=== PATIENT | female | born 1995 | race Two or more races ===

== ENCOUNTER 2017-11-18 19:16 | Emergency (ER) | payer OTHER ==
[~2017-11-18] VITALS: Ht 170.2 cm; Wt 51.3 kg
[~2017-11-18 19:16] MED LIST: NO MEDICAMENTO; PROTONIX40 MG PO
== END 2017-11-18 22:24 | disposition home or self-care (01) ==
LOC: ER 19:16
DX: B34.9 Viral infection, unspecified (principal)

== ENCOUNTER 2017-11-29 20:13 | Emergency (ER) | payer OTHER ==
[~2017-11-29] VITALS: Ht 170.2 cm; Wt 51.3 kg
[2017-11-30] MEDS ORDERED: PEPCID40 MG PO (02:27)
[2017-11-30] MEDS ORDERED: ZOFRAN4 MG PO (02:27)
== END 2017-11-30 02:26 | disposition home or self-care (01) ==
LOC: ER 20:13
DX: K29.70 Gastritis, unspecified, without bleeding (principal)

== ENCOUNTER → 2018-09-20 | Emergency (ER) | payer OTHER ==
[~2018-09-20] VITALS: Ht 175.3 cm; Wt 56.2 kg
[~2018-09-20] MED LIST changes: +FOLIC ACID0.4 MG; +MEDROLPACK PO; +PEPCID40 MG PO; +PRENA1 CHEW TA1.4 MG; +SINGULAIR 10MG10 MG PO; +ZOFRAN4 MG PO
== END | disposition home or self-care (01) ==
LOC: ER 17:25
DX: O26.891 Other specified pregnancy related conditions, first trimester (principal); R10.2 Pelvic and perineal pain; Z34.01 Encounter for supervision of normal first pregnancy, first trimester

== ENCOUNTER 2018-09-29 01:41 | Emergency (ER) | payer OTHER ==
[~2018-09-29] VITALS: Ht 175.3 cm; Wt 56.2 kg
== END 2018-09-29 08:51 | disposition home or self-care (01) ==
LOC: ER 01:41
DX: O20.0 Threatened abortion (principal)

== ENCOUNTER 2018-10-23 13:32 | Emergency (ER) | payer OTHER ==
[~2018-10-23] VITALS: Ht 170.2 cm; Wt 68.0 kg
== END 2018-10-23 22:07 | disposition home or self-care (01) ==
LOC: ER 13:32
DX: O23.32 Infections of other parts of urinary tract in pregnancy, second trimester (principal); O26.892 Other specified pregnancy related conditions, second trimester; R10.2 Pelvic and perineal pain; Z34.02 Encounter for supervision of normal first pregnancy, second trimester

== ENCOUNTER 2018-11-27 15:46 | Emergency (ER) | payer OTHER ==
[~2018-11-27] VITALS: Ht 175.3 cm; Wt 58.1 kg
== END 2018-11-27 18:53 | disposition home or self-care (01) ==
LOC: ER 15:46
DX: R04.0 Epistaxis (principal); J32.8 Other chronic sinusitis; Z33.1 Pregnant state, incidental

== ENCOUNTER 2018-12-20 18:15 | Inpatient (IN) | payer OTHER ==
[~2018-12-20] VITALS: Ht 175.3 cm; Wt 59.0 kg
[2018-12-23] MEDS ORDERED: IRON325 MG PO (13:24)
[2018-12-23] MEDS ORDERED: CALCIUM 600 +1 EAC7 PO (13:24)
[2018-12-23] MEDS ORDERED: FOLIC ACID1 MG PO (13:24)
[2018-12-23] MEDS ORDERED: OBSTETRIX EC C1 EACH PO (13:24)
== END 2018-12-23 14:26 | disposition home or self-care (01) | DRG 833 ==
LOC: LDR 18:15 → OB/GYN 12-22 08:46
PROVIDERS: ADMIT Specialist
PROC: BY4CZZZ Ultrasonography of Second Trimester, Single Fetus (ICD-10-PCS; principal; 2018-12-20)
PROC: 4A1HXCZ Monitoring of Products of Conception, Cardiac Rate, External Approach (ICD-10-PCS; 2018-12-20)
DX: O47.02 False labor before 37 completed weeks of gestation, second trimester (principal); K29.00 Acute gastritis without bleeding; E86.0 Dehydration; E87.8 Other disorders of electrolyte and fluid balance, not elsewhere classified; Z34.02 Encounter for supervision of normal first pregnancy, second trimester

== ENCOUNTER 2019-01-03 15:41 | Outpatient (CLI) | payer OTHER ==
[~2019-01-03 15:41] MED LIST changes: +CALCIUM 600 +1 EAC7 PO; +FOLIC ACID1 MG PO; +IRON325 MG PO; +OBSTETRIX EC C1 EACH PO
[2019-01-04] MEDS ORDERED: NIFEDIPINE ER30 MG PO (10:12)
== END 2019-01-04 10:43 | disposition home or self-care (01) ==
LOC: OBS/DEL 15:41
DX: O60.03 Preterm labor without delivery, third trimester (principal); Z34.83 Encounter for supervision of other normal pregnancy, third trimester

== ENCOUNTER 2019-02-09 06:46 | Outpatient (CLI) | payer OTHER ==
[~2019-02-09 06:46] MED LIST changes: +NIFEDIPINE ER30 MG PO
== END 2019-02-09 10:02 | disposition home or self-care (01) ==
LOC: OBS/DEL 06:46
DX: O26.893 Other specified pregnancy related conditions, third trimester (principal); R10.2 Pelvic and perineal pain; Z34.83 Encounter for supervision of other normal pregnancy, third trimester

== ENCOUNTER 2019-03-04 09:18 | Inpatient (IN) | payer OTHER ==
[~2019-03-04] VITALS: Ht 175.3 cm; Wt 66.7 kg
[2019-03-15] MEDS ORDERED: Dermoplast SPRAY TOP (11:08)
[2019-03-15] MEDS ORDERED: HYDROCORTISO453.6 G1 RECTAL (11:08)
[2019-03-15] MEDS ORDERED: PRENA1 CHEW TA1.4 MG PO (11:08)
[2019-03-15] MEDS ORDERED: OXYC1TAB9 PO (11:08)
== END 2019-03-15 16:17 | disposition home or self-care (01) | DRG 807 ==
LOC: LDR 03-11 14:00 → OB/GYN 03-13 03:56
PROVIDERS: ADMIT Specialist
PROC: 10E0XZZ Delivery of Products of Conception, External Approach (ICD-10-PCS; principal; 2019-03-13)
PROC: 4A0HXFZ Measurement of Products of Conception, Cardiac Rhythm, External Approach (ICD-10-PCS; 2019-03-13)
DX: O80 Encounter for full-term uncomplicated delivery (principal); Z37.0 Single live birth; Z3A.38 38 weeks gestation of pregnancy

== ENCOUNTER 2019-04-30 01:04 | Inpatient (IN) | payer OTHER ==
[~2019-04-30] VITALS: Ht 175.3 cm; Wt 59.0 kg
[~2019-04-30 01:04] MED LIST changes: +Dermoplast SPRAY TOP; +HYDROCORTISO453.6 G1 RECTAL; +OXYC1TAB9 PO; +PRENA1 CHEW TA1.4 MG PO
== END 2019-05-02 20:02 | disposition home or self-care (01) | DRG 446 ==
LOC: ER 01:04 → EMR PED 01:05 → ER 01:05 → OB/GYN 19:43
PROVIDERS: ADMIT Internal Medicine
PROC: BF37ZZZ Magnetic Resonance Imaging (MRI) of Pancreas (ICD-10-PCS; principal; 2019-04-30)
PROC: BW40ZZZ Ultrasonography of Abdomen (ICD-10-PCS; 2019-04-30)
DX: K80.20 Calculus of gallbladder without cholecystitis without obstruction (principal); R59.1 Generalized enlarged lymph nodes; J45.909 Unspecified asthma, uncomplicated; R74.8 Abnormal levels of other serum enzymes

== ENCOUNTER 2019-05-12 18:26 | Inpatient (IN) | payer OTHER ==
[~2019-05-12] VITALS: Ht 172.7 cm; Wt 59.0 kg
--- NOTE | 2019-05-12 18:36 | NUR ---
PACIENTE ALERTA,ACTIVA Y ORIENTADA,REFIERE KATERIN HORA CON DOLOR SBDOMINAL QUE REFIERE ES POR PIEDRAS EN LA VESICULA.REFIERE VOMITO X 1.
--- NOTE | 2019-05-12 19:53 | NUR ---
SE ORIENTA A PTE SOBRE PROCESO DE VENOPUNCION, TIO DE MUESTRAS, ADMINISTRACION DE MED IV & SUBLINGUAL. PTE REFIERE ENTENDER INF CIARA, PTE ESPERA POR ESTUDIO.
--- NOTE | 2019-05-13 08:00 | NUR ---
SE RECIBE PTE DEL TURNO ANTERIOR, ALERTA Y ORIENTADA X 3 ESFERAS, EN CAMA NIVEL MAS BAJO, DAUGHERTY DE IDENTIFICACION Y BARANDAS ELEVADAS POR PRECAUCION. SE OBSERVA CON BUEN PATRON RESPIRATORIO Y PIEL TIBIA AL TACTO. H.L PATENTE Y MATHEW DE EDEMA O ERITEMA. PENDIENTE A CONSULTA CON DR TRIMBLE Y DR MALAVE.
== END 2019-05-16 10:40 | DRG 419 ==
LOC: ER 18:26 → MEDI 05-13 13:31 → SEC-K 05-13 13:31 → MEDJ 05-13 16:19 → MEDI 05-13 16:19 → OB/GYN 05-14 19:29
PROVIDERS: ADMIT Surgery
PROC: 0DNW4ZZ Release Peritoneum, Percutaneous Endoscopic Approach (ICD-10-PCS; 2019-05-14)
PROC: 0FT44ZZ Resection of Gallbladder, Percutaneous Endoscopic Approach (ICD-10-PCS; principal; 2019-05-14 12:15)
DX: K80.10 Calculus of gallbladder with chronic cholecystitis without obstruction (principal); K66.0 Peritoneal adhesions (postprocedural) (postinfection); R94.5 Abnormal results of liver function studies; R59.0 Localized enlarged lymph nodes; J45.909 Unspecified asthma, uncomplicated; G43.809 Other migraine, not intractable, without status migrainosus

== ENCOUNTER 2019-07-29 13:25 | Emergency (ER) | payer OTHER ==
[~2019-07-29] VITALS: Ht 175.3 cm; Wt 56.2 kg
== END 2019-07-29 17:28 | disposition home or self-care (01) ==
LOC: ER 13:25
DX: R10.2 Pelvic and perineal pain (principal)

== ENCOUNTER 2020-04-15 21:56 | Emergency (ER) | payer OTHER ==
[~2020-04-15] VITALS: Ht 175.3 cm; Wt 54.4 kg
[2020-04-15] MEDS ORDERED: PROMETRIUM200 MG (22:10)
[2020-04-15] MEDS ORDERED: PRENA1 TRUE CO1 EACH (22:10)
[2020-04-16] MEDS ORDERED: ZOFRAN8 M1 PO (06:10)
[2020-04-16] MEDS ORDERED: PEPCID40 MG PO (06:10)
== END 2020-04-16 06:12 | disposition home or self-care (01) ==
LOC: ER 21:56
DX: O21.8 Other vomiting complicating pregnancy (principal); Z3A.09 9 weeks gestation of pregnancy

== ENCOUNTER 2020-05-03 22:15 | Emergency (ER) | payer OTHER ==
[~2020-05-03] VITALS: Ht 175.3 cm; Wt 53.1 kg
[~2020-05-03 22:15] MED LIST changes: +PRENA1 TRUE CO1 EACH; +PROMETRIUM200 MG; +ZOFRAN8 M1 PO
== END 2020-05-04 04:00 | disposition home or self-care (01) ==
LOC: ER 22:15
DX: O26.851 Spotting complicating pregnancy, first trimester (principal); Z3A.12 12 weeks gestation of pregnancy; Z03.818 Encounter for observation for suspected exposure to other biological agents ruled out

== ENCOUNTER 2020-05-10 18:25 | Emergency (ER) | payer OTHER ==
[~2020-05-10] VITALS: Ht 175.3 cm; Wt 53.1 kg
== END 2020-05-10 21:25 | disposition home or self-care (01) ==
LOC: ER 18:25
DX: G43.909 Migraine, unspecified, not intractable, without status migrainosus (principal)

== ENCOUNTER 2020-06-27 02:13 | Outpatient (CLI) | payer OTHER | END 2020-06-28 10:58 | disposition home or self-care (01) | LOC: OBS/DEL 02:13 | PROVIDERS: ATTEND Specialist | DX: O47.1 False labor at or after 37 completed weeks of gestation (principal) ==

== ENCOUNTER → 2020-07-23 | Outpatient (CLI) | payer OTHER | END | disposition home or self-care (01) | LOC: OBS/DEL 03:56 | PROVIDERS: ATTEND Specialist | DX: O26.892 Other specified pregnancy related conditions, second trimester (principal); R10.2 Pelvic and perineal pain ==

== ENCOUNTER → 2020-09-10 | Outpatient (CLI) | payer OTHER | END | disposition home or self-care (01) | LOC: PRENATAL 09-07 11:30 | PROVIDERS: ATTEND Obstetrics & Gynecology Maternal & Fetal Medicine | DX: O35.0XX1 Maternal care for (suspected) central nervous system malformation in fetus, fetus 1 (principal); O35.3XX1 Maternal care for (suspected) damage to fetus from viral disease in mother, fetus 1; O98.513 Other viral diseases complicating pregnancy, third trimester; Z36.89 Encounter for other specified antenatal screening; Z3A.31 31 weeks gestation of pregnancy ==

== ENCOUNTER 2020-09-28 19:04 | Outpatient (CLI) | payer OTHER | END 2020-09-29 10:40 | disposition home or self-care (01) | LOC: OBS/DEL 19:04 | PROVIDERS: ATTEND Specialist | DX: O26.893 Other specified pregnancy related conditions, third trimester (principal); R19.7 Diarrhea, unspecified; O21.8 Other vomiting complicating pregnancy ==

== ENCOUNTER 2020-10-18 22:41 | Inpatient (IN) | payer OTHER ==
[~2020-10-18] VITALS: Ht 175.3 cm; Wt 59.4 kg
== END 2020-10-21 10:08 | disposition home or self-care (01) | DRG 807 ==
LOC: OB/GYN 22:41 → LDR 22:41 → OB/GYN 10-19 10:05
PROVIDERS: ADMIT Specialist; ATTEND Specialist
PROC: 4A1HXFZ Monitoring of Products of Conception, Cardiac Rhythm, External Approach (ICD-10-PCS; 2020-10-18)
PROC: 10E0XZZ Delivery of Products of Conception, External Approach (ICD-10-PCS; principal; 2020-10-19)
PROC: BY4FZZZ Ultrasonography of Third Trimester, Single Fetus (ICD-10-PCS; 2020-10-19)
PROC: B030ZZZ Magnetic Resonance Imaging (MRI) of Brain (ICD-10-PCS; 2020-10-19)
DX: O71.89 Other specified obstetric trauma (principal); Z37.0 Single live birth; O99.824 Streptococcus B carrier state complicating childbirth; Z3A.37 37 weeks gestation of pregnancy; Z20.822 Contact with and (suspected) exposure to COVID-19
CPT/HCPCS: 70544

== ENCOUNTER 2020-10-26 01:39 | Emergency (ER) | payer OTHER ==
[~2020-10-26] VITALS: Ht 175.3 cm; Wt 60.8 kg
== END 2020-10-26 06:24 | disposition home or self-care (01) ==
LOC: ER 01:39
DX: M62.838 Other muscle spasm (principal); R51.9 Headache, unspecified

== ENCOUNTER 2020-12-02 13:41 | Emergency (ER) | payer OTHER ==
[~2020-12-02] VITALS: Ht 175.3 cm; Wt 55.3 kg
[2020-12-02] MEDS ORDERED: CYCLOBENZAPRINE10 MG PO (16:22)
== END 2020-12-02 16:35 | disposition home or self-care (01) ==
LOC: ER 13:41
DX: G89.11 Acute pain due to trauma (principal); M54.2 Cervicalgia; M62.838 Other muscle spasm; R51.9 Headache, unspecified; R42 Dizziness and giddiness

== ENCOUNTER 2021-02-02 20:57 | Emergency (ER) | payer OTHER ==
[~2021-02-02] VITALS: Ht 167.6 cm; Wt 49.9 kg
[~2021-02-02 20:57] MED LIST changes: +CYCLOBENZAPRINE10 MG PO
[2021-02-03] MEDS ORDERED: ALBUTEROL2.5 MG/3 M IH (03:11)
[2021-02-03] MEDS ORDERED: SYMBICORT 16010.2 GM IH (03:11)
[2021-02-03] MEDS ORDERED: ZYNCOF 20-400120 ML PO (03:12)
== END 2021-02-03 03:17 | disposition home or self-care (01) ==
LOC: ER 20:57
DX: J45.998 Other asthma (principal); B34.9 Viral infection, unspecified; J06.9 Acute upper respiratory infection, unspecified; Z11.52 Encounter for screening for COVID-19

== ENCOUNTER 2021-03-10 19:16 | Emergency (ER) | payer OTHER ==
[~2021-03-10] VITALS: Ht 175.3 cm; Wt 54.4 kg
[~2021-03-10 19:16] MED LIST changes: +ALBUTEROL2.5 MG/3 M IH; +SYMBICORT 16010.2 GM IH; +ZYNCOF 20-400120 ML PO
[2021-03-10] MEDS ORDERED: PEPCID AC20 MG PO (22:41)
[2021-03-10] MEDS ORDERED: ZOFRAN8 MG PO (22:41)
== END 2021-03-10 22:45 | disposition home or self-care (01) ==
LOC: ER 19:16
DX: R11.2 Nausea with vomiting, unspecified (principal)

== ENCOUNTER 2021-04-01 15:41 | Emergency (ER) | payer OTHER ==
[~2021-04-01] VITALS: Ht 172.7 cm; Wt 56.2 kg
[~2021-04-01 15:41] MED LIST changes: +PEPCID AC20 MG PO; +ZOFRAN8 MG PO
== END 2021-04-01 19:02 | disposition home or self-care (01) ==
LOC: ER 15:41
DX: R10.2 Pelvic and perineal pain (principal)

== ENCOUNTER 2021-06-07 22:09 | Emergency (ER) | payer OTHER ==
[~2021-06-07] VITALS: Ht 175.3 cm; Wt 62.6 kg
[2021-06-08] MEDS ORDERED: PEPCID40 MG PO (07:22)
[2021-06-08] MEDS ORDERED: ZOFRAN8 MG PO (07:22)
== END 2021-06-08 07:55 ==
LOC: ER 22:09
DX: K29.70 Gastritis, unspecified, without bleeding (principal); R11.11 Vomiting without nausea

== ENCOUNTER 2021-08-21 23:46 | Emergency (ER) | payer OTHER ==
[~2021-08-21] VITALS: Ht 175.3 cm; Wt 56.7 kg
[2021-08-22] MEDS ORDERED: PEPCID40 MG PO (03:28)
[2021-08-22] MEDS ORDERED: CEPHALEXIN500 MG PO (03:28)
[2021-08-22] MEDS ORDERED: ZOFRAN8 MG PO (03:28)
== END 2021-08-22 03:39 | disposition home or self-care (01) ==
LOC: ER 23:46
DX: K29.70 Gastritis, unspecified, without bleeding (principal); R09.89 Other specified symptoms and signs involving the circulatory and respiratory systems; R11.2 Nausea with vomiting, unspecified; Z03.818 Encounter for observation for suspected exposure to other biological agents ruled out

== ENCOUNTER 2021-12-12 16:18 | Emergency (ER) | payer OTHER ==
[~2021-12-12] VITALS: Ht 175.3 cm; Wt 53.5 kg
[~2021-12-12 16:18] MED LIST changes: +CEPHALEXIN500 MG PO
== END 2021-12-12 23:20 | disposition home or self-care (01) ==
LOC: ER 16:18
DX: R10.2 Pelvic and perineal pain (principal); Z88.6 Allergy status to analgesic agent

== ENCOUNTER 2022-02-01 18:23 | Emergency (ER) | payer OTHER ==
[~2022-02-01] VITALS: Ht 175.3 cm; Wt 55.3 kg
== END 2022-02-01 22:32 | disposition home or self-care (01) ==
LOC: ER 18:23
DX: K52.9 Noninfective gastroenteritis and colitis, unspecified (principal); E86.0 Dehydration; Z88.6 Allergy status to analgesic agent

== ENCOUNTER 2022-04-24 12:41 | Emergency (ER) | payer OTHER ==
[~2022-04-24] VITALS: Ht 175.3 cm; Wt 52.6 kg
== END 2022-04-24 19:46 | disposition home or self-care (01) ==
LOC: ER 12:41
DX: K52.9 Noninfective gastroenteritis and colitis, unspecified (principal)

== ENCOUNTER 2022-04-28 18:14 | Emergency (ER) | payer OTHER ==
[~2022-04-28] VITALS: Ht 172.7 cm; Wt 52.6 kg
[2022-04-29] MEDS ORDERED: ACETAMINOPHEN650 M2 PO (02:43)
[2022-04-29] MEDS ORDERED: BACTRIM DS TAB1 EACH PO (02:43)
[2022-04-29] MEDS ORDERED: PYRIDIUM200 MG PO (02:43)
== END 2022-04-29 02:50 | disposition home or self-care (01) ==
LOC: ER 18:14
DX: N39.0 Urinary tract infection, site not specified (principal); N83.209 Unspecified ovarian cyst, unspecified side

== ENCOUNTER 2022-05-03 02:13 | Emergency (ER) | payer OTHER ==
[~2022-05-03] VITALS: Ht 172.7 cm; Wt 52.6 kg
[~2022-05-03 02:13] MED LIST changes: +ACETAMINOPHEN650 M2 PO; +BACTRIM DS TAB1 EACH PO; +PYRIDIUM200 MG PO
[2022-05-03] MEDS ORDERED: PEPCID40 MG PO (07:27)
[2022-05-03] MEDS ORDERED: ZOFRAN8 MG PO (07:27)
[2022-05-03] MEDS ORDERED: PROTONIX40 MG PO (07:27)
== END 2022-05-03 07:52 ==
LOC: ER 02:13
DX: K29.70 Gastritis, unspecified, without bleeding (principal); Z88.6 Allergy status to analgesic agent

== ENCOUNTER 2022-12-19 19:40 | Emergency (ER) | payer OTHER ==
[~2022-12-19] VITALS: Ht 175.3 cm; Wt 56.7 kg
== END 2022-12-19 22:44 | disposition home or self-care (01) ==
LOC: ER 19:40
DX: O26.892 Other specified pregnancy related conditions, second trimester (principal); Z3A.17 17 weeks gestation of pregnancy; R10.2 Pelvic and perineal pain; Z88.6 Allergy status to analgesic agent

== ENCOUNTER 2023-01-15 04:38 | Outpatient (CLI) | payer OTHER ==
[2023-01-15] MEDS ORDERED: PRENATAL CAPLE1 EAC1 (05:26)
== END 2023-01-15 16:46 | disposition home or self-care (01) ==
LOC: OBS/DEL 04:38
PROVIDERS: ATTEND Specialist
DX: O26.892 Other specified pregnancy related conditions, second trimester (principal); K52.89 Other specified noninfective gastroenteritis and colitis; Z3A.21 21 weeks gestation of pregnancy; Z88.6 Allergy status to analgesic agent

== ENCOUNTER 2023-04-18 00:30 | Outpatient (CLI) | payer OTHER ==
[~2023-04-18 00:30] MED LIST changes: +PRENATAL CAPLE1 EAC1
== END 2023-04-18 08:59 | disposition home or self-care (01) ==
LOC: OBS/DEL 00:30
PROVIDERS: ATTEND Specialist
DX: O26.893 Other specified pregnancy related conditions, third trimester (principal); K52.89 Other specified noninfective gastroenteritis and colitis; Z3A.34 34 weeks gestation of pregnancy; Z88.6 Allergy status to analgesic agent

== ENCOUNTER 2023-05-17 05:53 | Inpatient (IN) | payer OTHER ==
[~2023-05-17] VITALS: Ht 175.3 cm; Wt 64.0 kg
== END 2023-05-19 13:00 | disposition home or self-care (01) | DRG 798 ==
LOC: LDR 05:53 → OB/GYN 07:00
PROVIDERS: ADMIT Specialist; ATTEND Specialist
PROC: 10E0XZZ Delivery of Products of Conception, External Approach (ICD-10-PCS; principal; 2023-05-17)
PROC: 4A1HXCZ Monitoring of Products of Conception, Cardiac Rate, External Approach (ICD-10-PCS; 2023-05-17)
PROC: 0UB70ZZ Excision of Bilateral Fallopian Tubes, Open Approach (ICD-10-PCS; 2023-05-18)
DX: O80 Encounter for full-term uncomplicated delivery (principal); Z37.0 Single live birth; Z3A.38 38 weeks gestation of pregnancy; Z20.822 Contact with and (suspected) exposure to COVID-19; Z30.2 Encounter for sterilization

== ENCOUNTER 2024-06-03 16:40 | Emergency (ER) | payer OTHER ==
[~2024-06-03] VITALS: Ht 175.3 cm; Wt 73.0 kg
[2024-06-03] MEDS ORDERED: METHYLPREDNISOLONE SOD SUCC 125 MG VIAL IV ONE (18:00)
[2024-06-03] MEDS ORDERED: TRAMADOL HCL 50 MG TABLET PO ONE (18:00)
[2024-06-03] MEDS ORDERED: METHYLPREDNISOLONE SOD SUCC 125 MG VIAL ONE (18:25)
== END 2024-06-03 19:57 | disposition home or self-care (01) ==
LOC: ER 16:41
DX: M65.4 Radial styloid tenosynovitis [de Quervain] (principal); Z88.6 Allergy status to analgesic agent; M19.90 Unspecified osteoarthritis, unspecified site

== ENCOUNTER → 2024-08-12 | Emergency (ER) | payer OTHER ==
[~2024-08-12] VITALS: Ht 172.7 cm; Wt 61.2 kg
[~2024-08-12] MED LIST changes: +0.9 % SODIUM CHLORIDE 1,000 ML IV ONE; +HYOSCYAMINE SULFATE 0.125 MG TAB.SUBL SL ONE; +MEPERIDINE HCL/PF 25 MG/ML VIAL IM STA; +PROMETHAZINE HCL 50 MG/ML AMPUL IM STA
[2024-08-12 22:44] VITALS: BP 106/75; O2SAT 99
[2024-08-13 01:28] LABS: HEMATOCRIT 35.6 % (36.0-45.00); HEMOGLOBIN 12.1 g/dL (12.0-15.00); MEAN CELL VOLUME 87.8 fL (80.00-100.00); MEAN CORPUSCULAR HGB CONC 34.1 g/dl (32.0-36.0); PLATELET COUNT 276 K/uL (150-450); RED BLOOD COUNT 4.05 M/uL (4.00-6.00); RED CELL DISTRIBUTION WIDTH 13.1 % (11.5-14.5)
[2024-08-13 01:37] LABS: INR 1.05; PARTIAL THROMBOPLASTIN TIME 29.8 SECONDS (22.0-34.0); PROTHROMBIN TIME 11.4 SECONDS (9.0-11.5)
[2024-08-13 02:13] LABS: ALBUMIN 3.9 gm/dL (3.4-5.0); ALKALINE PHOSPHATASE 70 U/L (50-136); ALT/SGPT 15 U/L (12-78); AMYLASE 50 U/L (25-115); ANION GAP 13 (10.0-20.0); AST/SGOT 15 U/L (15-37); BLOOD UREA NITROGEN 6 mg/dL (7-18); BUN CREA RATIO 12 (7.0-25.0); CALCIUM 8.8 mg/dL (8.5-10.1); CARBON DIOXIDE 27 mEq/L (21-32); CHLORIDE 107 mmol/L (98-107); CREATININE SERUM 0.49 mg/dL (0.55-1.02); GFR 151.49; GLOBULINA 3.3 G/DL (2.4-3.5); GLUCOSE FASTING 78 mg/dL (65-100); LIPASE 31 U/L (13-75); OSMOLALITY SERUM 281 MOSM/KG (275-295); POTASSIUM 3.62 mEq/L (3.5-5.1); SODIUM 143 mmol/L (136-145); TOTAL PROTEIN 7.2 gm/dL (6.4-8.2)
[2024-08-13 02:36] LABS: HCG QUANTITATIVE < 1 mUI/mL (1-3)
== END | disposition left against medical advice (07) ==
LOC: ER 22:02
PROVIDERS: General Practice
DX: R10.9 Unspecified abdominal pain (principal); Z88.6 Allergy status to analgesic agent
CPT/HCPCS: 36415; 96365; 96366; 99282; J2250; J3490; J7030